=== PATIENT | male | born 1990 | race Caucasian/White ===

== ENCOUNTER 2025-03-26 16:39 | Inpatient (IN) | payer SELFPAY ==
[2025-03-26] MEDS ORDERED: Oseltamivir 75 MG CAP ONE (17:27)
[2025-03-26] MEDS ORDERED: Glucagon 1 MG/ML KIT IM PRN (17:28)
[2025-03-26] MEDS ORDERED: Nitroglycerin 0.4 MG TAB (25 Tab Bottle) SL PRN (17:28)
[2025-03-26] MEDS ORDERED: niCARdipine 25 MG/10 ML SDV ONE ×2 (17:28→21:03)
[2025-03-26] MEDS ORDERED: Dextrose 50% Abboject 50 ML SYRINGE SLOW IVP PRN (17:28)
[2025-03-26] MEDS ORDERED: Acetaminophen 325 MG TAB PO PRN (17:28)
[2025-03-26] MEDS ORDERED: Electrolyte Replacement Protocol 1 EACH FS SCH (17:30)
[2025-03-26] MEDS ORDERED: Ibuprofen 200 MG TAB ONE (17:32)
[2025-03-26 17:34] LABS: #Basophils Less than 0.03 10x3/uL (0.0-0.2); #Eosinophils Less than 0.03 10x3/uL (0.0-0.5); #Monocytes 0.69 10x3/uL (0.0-1.1); #Neutrophils 4.42 10x3/uL (1.5-8.4); %Basophils 0.3 % (0.0-2.0); %Eosinophils 0.2 % (0.0-6.0); %Lymphocytes 13.9 % (18.0-47.0); %Monocytes 11.5 % (0.0-10.0); %Neutrophils 73.8 % (40.0-75.0); Hematocrit 41.0 % (38.8-50.0); Hemoglobin 14.0 g/dL (13.5-17.5); Mean Corpuscular Hemoglobin 28.8 pg (27.0-33.0); Mean Corpuscular Volume 84.4 fL (81.2-95.1); Platelet Count 215 10x3/uL (150-450); Red Blood Cell (RBC) Count 4.86 10x6/uL (4.32-5.72); White Blood Cell (WBC) Count 5.99 10x3/uL (3.5-10.5)
[2025-03-26 17:51] LABS: ALT (SGPT) 43 U/L (Less than 45); AST (SGOT) 64 U/L (11-34); Albumin 4.0 g/dL (3.1-4.5); Alkaline Phosphatase 49 U/L (40-110); Anion Gap 14 mmol/L (10-20); BUN (Urea Nitrogen) 10 mg/dL (8.9-20.6); Bilirubin, Total 0.5 mg/dL (0.3-1.2); Calc. Creatinine Clearance 0 mL/min (70-130); Calcium 8.8 mg/dL (7.8-10.44); Carbon Dioxide 24 mmol/L (22-29); Chloride 102 mmol/L (98-107); Globulin 3.4 g/dL (2.4-3.5); Glucose 225 mg/dL (70-105); Potassium 3.7 mmol/L (3.5-5.1); Sodium 136 mmol/L (136-145)
[2025-03-26 18:34] LABS: Troponin I 0.217 ng/mL (< 0.028)
[2025-03-26 21:28] LABS: Troponin I 0.175 ng/mL (< 0.028)
[2025-03-26 22:30] VITALS: BMI 43.7
[2025-03-26] MEDS ORDERED: PHOS-NAK 1 PKT PACK PO PRN (23:30)
[2025-03-26] MEDS ORDERED: Potassium Chloride 20 MEQ in Premix 1 BAG IVPB PRN (23:30)
[2025-03-26] MEDS: niCARdipine 25 MG in Sodium Chloride 0.9% 250 ML 250 ML IVPB SCH (23:37)
[2025-03-26] MEDS: Enoxaparin 40 MG (0.4 mL) SYRINGE SC SCH (23:44)
[2025-03-26] MEDS: Famotidine 20 MG TAB PO SCH (23:45)
[2025-03-26] MEDS: Famotidine/PF 20 mg/2ml Vial SLOW IVP SCH (23:52)
[2025-03-27] MEDS: FLU (Fluarix Triv) 25-26 (6MOS UP)/PF 45 MCG/0.5 ML Syringe IM ONE (00:56)
[2025-03-27] MEDS: Metoprolol Tartrate 5 MG (5 mL) VIAL IVP SCH (02:43)
[2025-03-27] MEDS: Nitroglycerin 2% Ointment 1 INCH/1 GM Packet TOP SCH ×2 (02:43→21:45)
[2025-03-27] MEDS: Mupirocin 1 GM TUBE TP SCH (02:43)
[2025-03-27 04:15] LABS: #Basophils Less than 0.03 10x3/uL (0.0-0.2); #Eosinophils 0.06 10x3/uL (0.0-0.5); #Monocytes 0.84 10x3/uL (0.0-1.1); #Neutrophils 2.53 10x3/uL (1.5-8.4); %Basophils 0.2 % (0.0-2.0); %Eosinophils 1.1 % (0.0-6.0); %Lymphocytes 34.5 % (18.0-47.0); %Monocytes 15.9 % (0.0-10.0); %Neutrophils 47.9 % (40.0-75.0); Hematocrit 39.7 % (38.8-50.0); Hemoglobin 13.6 g/dL (13.5-17.5); Mean Corpuscular Hemoglobin 29.0 pg (27.0-33.0); Mean Corpuscular Volume 84.6 fL (81.2-95.1); Platelet Count 217 10x3/uL (150-450); Red Blood Cell (RBC) Count 4.69 10x6/uL (4.32-5.72); White Blood Cell (WBC) Count 5.28 10x3/uL (3.5-10.5)
[2025-03-27 04:33] LABS: ALT (SGPT) 45 U/L (Less than 45); AST (SGOT) 67 U/L (11-34); Albumin 3.8 g/dL (3.1-4.5); Alkaline Phosphatase 45 U/L (40-110); Anion Gap 11 mmol/L (10-20); BUN (Urea Nitrogen) 9 mg/dL (8.9-20.6); Bilirubin, Total 0.5 mg/dL (0.3-1.2); Calc. Creatinine Clearance 219 mL/min (70-130); Calcium 8.7 mg/dL (7.8-10.44); Carbon Dioxide 24 mmol/L (22-29); Cardiac Risk 6.9 (Less than 4.5); Chloride 108 mmol/L (98-107); Cholesterol 194 mg/dl (< 200 Desired); Globulin 3.3 g/dL (2.4-3.5); Glucose 193 mg/dL (70-105); HDL Cholesterol 28 mg/dL (>60 Neg Risk); LDL Cholesterol, Calculated 126 mg/dL; Magnesium 1.9 mg/dL (1.6-2.6); Potassium 3.4 mmol/L (3.5-5.1); Sodium 140 mmol/L (136-145); Triglycerides 200 mg/dL (Less than 150)
[2025-03-27] MEDS ORDERED: Ibuprofen 200 MG TAB PO PRN (07:31)
[2025-03-27] MEDS: Carvedilol 6.25 MG TAB PO SCH (08:16)
[2025-03-27] MEDS: Losartan 25 MG TAB PO SCH ×2 (08:16→12:52)
[2025-03-27] MEDS: Oseltamivir 75 MG CAP PO SCH (08:16)
[2025-03-27] MEDS: Aspirin 81 mg Enteric Coated Tablet PO SCH (08:16)
[2025-03-27] MEDS: BuPROPion XL 150 MG ER.TAB PO SCH (08:17)
[2025-03-27] MEDS: Famotidine 20 MG TAB PO SCH (08:17)
[2025-03-27] MEDS: Enoxaparin 40 MG (0.4 mL) SYRINGE SC SCH (08:17)
[2025-03-27] MEDS: ALPRAZolam 0.25 MG TAB PO PRN (08:17)
[2025-03-27] MEDS: SODIUM CHLORIDE IVPB SCH (08:18)
[2025-03-27] MEDS: NICARDIPINE IVPB SCH (08:18)
[2025-03-27] MEDS: ADMIXTURE FEE IVPB SCH (08:18)
[2025-03-27] MEDS ORDERED: Enoxaparin 40 MG (0.4 mL) SYRINGE SC SCH (09:00)
[2025-03-27] MEDS ORDERED: Famotidine/PF 20 mg/2ml Vial SLOW IVP SCH (09:00)
[2025-03-27 09:44] LABS: Free T4 (Free Thyroxine) 1.11 ng/dL (0.70-1.48)
[2025-03-27 12:19] LABS: Potassium 3.7 mmol/L (3.5-5.1)
[2025-03-27] MEDS: Carvedilol 12.5 MG TAB PO SCH (17:11)
[2025-03-27] MEDS: Spironolactone 25 MG TAB PO SCH (17:11)
[2025-03-28] MEDS: ADMIXTURE FEE IVPB SCH (01:30)
[2025-03-28] MEDS: SODIUM CHLORIDE IVPB SCH (01:30)
[2025-03-28] MEDS: NICARDIPINE IVPB SCH (01:30)
[2025-03-28 05:43] LABS: #Basophils Less than 0.03 10x3/uL (0.0-0.2); #Eosinophils 0.22 10x3/uL (0.0-0.5); #Monocytes 0.59 10x3/uL (0.0-1.1); #Neutrophils 2.33 10x3/uL (1.5-8.4); %Basophils 0.4 % (0.0-2.0); %Eosinophils 4.2 % (0.0-6.0); %Lymphocytes 39.5 % (18.0-47.0); %Monocytes 11.3 % (0.0-10.0); %Neutrophils 44.4 % (40.0-75.0); Hematocrit 42.6 % (38.8-50.0); Hemoglobin 14.3 g/dL (13.5-17.5); Mean Corpuscular Hemoglobin 28.5 pg (27.0-33.0); Mean Corpuscular Volume 84.9 fL (81.2-95.1); Platelet Count 255 10x3/uL (150-450); Red Blood Cell (RBC) Count 5.02 10x6/uL (4.32-5.72); White Blood Cell (WBC) Count 5.24 10x3/uL (3.5-10.5)
[2025-03-28 05:56] LABS: Anion Gap 13 mmol/L (10-20); BUN (Urea Nitrogen) 10 mg/dL (8.9-20.6); Calc. Creatinine Clearance 215 mL/min (70-130); Calcium 9.2 mg/dL (7.8-10.44); Carbon Dioxide 23 mmol/L (22-29); Chloride 106 mmol/L (98-107); Glucose 142 mg/dL (70-105); Magnesium 1.9 mg/dL (1.6-2.6); Potassium 3.7 mmol/L (3.5-5.1); Sodium 138 mmol/L (136-145)
[2025-03-28] MEDS ORDERED: Spironolactone 25 MG TAB PO SCH (08:00)
[2025-03-28] MEDS: metFORMIN 500 MG TAB PO SCH (08:19)
[2025-03-28] MEDS: Spironolactone 25 MG TAB PO SCH (08:19)
[2025-03-28] MEDS: Carvedilol 25 MG TAB PO SCH (08:19)
[2025-03-28] MEDS: BuPROPion XL 150 MG ER.TAB PO SCH (08:20)
[2025-03-28] MEDS: Losartan 50 MG TAB PO SCH (08:20)
[2025-03-28] MEDS ORDERED: Losartan 25 MG TAB PO SCH (09:00)
[2025-03-28] MEDS ORDERED: Losartan 50 MG TAB PO SCH (09:00)
[2025-03-28] MEDS ORDERED: niCARdipine 25 MG in Sodium Chloride 0.9% 250 ML 250 ML IVPB SCH (11:45)
[2025-03-28] MEDS: ALPRAZolam 0.5 MG TAB PO PRN (11:53)
[2025-03-28] MEDS: Magnesium 2 GM/50 ML(in water) 2 GM in Premix 1 BAG IVPB PRN (16:12)
[2025-03-29] MEDS: Ondansetron PF 4 MG/2 ML Vial IVP PRN (00:22)
[2025-03-29 03:47] LABS: #Basophils 0.03 10x3/uL (0.0-0.2); #Eosinophils 0.39 10x3/uL (0.0-0.5); #Monocytes 0.58 10x3/uL (0.0-1.1); #Neutrophils 2.01 10x3/uL (1.5-8.4); %Basophils 0.5 % (0.0-2.0); %Eosinophils 6.8 % (0.0-6.0); %Lymphocytes 47.4 % (18.0-47.0); %Monocytes 10.1 % (0.0-10.0); %Neutrophils 35.0 % (40.0-75.0); Hematocrit 41.1 % (38.8-50.0); Hemoglobin 13.9 g/dL (13.5-17.5); Mean Corpuscular Hemoglobin 29.0 pg (27.0-33.0); Mean Corpuscular Volume 85.8 fL (81.2-95.1); Platelet Count 293 10x3/uL (150-450); Red Blood Cell (RBC) Count 4.79 10x6/uL (4.32-5.72); White Blood Cell (WBC) Count 5.74 10x3/uL (3.5-10.5)
[2025-03-29 04:02] LABS: Anion Gap 14 mmol/L (10-20); BUN (Urea Nitrogen) 18 mg/dL (8.9-20.6); Calc. Creatinine Clearance 175 mL/min (70-130); Calcium 9.3 mg/dL (7.8-10.44); Carbon Dioxide 23 mmol/L (22-29); Chloride 106 mmol/L (98-107); Glucose 104 mg/dL (70-105); Magnesium 2.4 mg/dL (1.6-2.6); Potassium 4.3 mmol/L (3.5-5.1); Sodium 139 mmol/L (136-145)
[2025-03-29] MEDS: Guaifenesin DM 100-10/5 ML UDCUP PO PRN (09:13)
[2025-03-29] MEDS: NIFEdipine XL 30 MG ER.TAB PO SCH ×2 (10:31→21:12)
[2025-03-29] MEDS: Furosemide 20 MG (2 mL) VIAL SLOW IVP SCH (10:35)
[2025-03-30 03:31] LABS: #Basophils 0.03 10x3/uL (0.0-0.2); #Eosinophils 0.49 10x3/uL (0.0-0.5); #Monocytes 0.48 10x3/uL (0.0-1.1); #Neutrophils 2.08 10x3/uL (1.5-8.4); %Basophils 0.5 % (0.0-2.0); %Eosinophils 8.7 % (0.0-6.0); %Lymphocytes 45.3 % (18.0-47.0); %Monocytes 8.5 % (0.0-10.0); %Neutrophils 36.8 % (40.0-75.0); Hematocrit 45.1 % (38.8-50.0); Hemoglobin 15.0 g/dL (13.5-17.5); Mean Corpuscular Hemoglobin 28.6 pg (27.0-33.0); Mean Corpuscular Volume 86.1 fL (81.2-95.1); Platelet Count 332 10x3/uL (150-450); Red Blood Cell (RBC) Count 5.24 10x6/uL (4.32-5.72); White Blood Cell (WBC) Count 5.65 10x3/uL (3.5-10.5)
[2025-03-30 03:42] LABS: Anion Gap 17 mmol/L (10-20); BUN (Urea Nitrogen) 21 mg/dL (8.9-20.6); Calc. Creatinine Clearance 183 mL/min (70-130); Calcium 10.0 mg/dL (7.8-10.44); Carbon Dioxide 20 mmol/L (22-29); Chloride 104 mmol/L (98-107); Glucose 89 mg/dL (70-105); Potassium 4.1 mmol/L (3.5-5.1); Sodium 137 mmol/L (136-145)
[2025-03-30] MEDS: Furosemide 20 MG (2 mL) VIAL SLOW IVP SCH (08:43)
[2025-03-30] MEDS: Mupirocin 1 GM TUBE TP SCH (08:44)
[2025-03-30 12:53] VITALS: BP 116/82; TEMP 98.2
== END 2025-03-30 14:33 | disposition home or self-care (01) | DRG 281 ==
LOC: CSHERS 16:39 → CSHICU 17:52
PROVIDERS: ADMIT Family Medicine; ATTEND Hospitalist
DX: I16.0 Hypertensive urgency (principal); I50.22 Chronic systolic (congestive) heart failure; I21.A1 Myocardial infarction type 2; N17.9 Acute kidney failure, unspecified; Z68.41 Body mass index [BMI] 40.0-44.9, adult; E66.01 Morbid (severe) obesity due to excess calories; R73.9 Hyperglycemia, unspecified; E87.6 Hypokalemia; F41.9 Anxiety disorder, unspecified; F32.A Depression, unspecified; E78.5 Hyperlipidemia, unspecified; F10.10 Alcohol abuse, uncomplicated; J10.1 Influenza due to other identified influenza virus with other respiratory manifestations
CPT/HCPCS: 36415; 36416; 71045; 80048; 80053; 80061; 83036; 83735; 84100; 84439; 84443; 84481; 85025; 93306; 94640; 96374; J1650; J1815; J1940; J2405; J3475; J7030; J7050; J7120